=== PATIENT | male | born 1970 | race Caucasian/White ===

== ENCOUNTER 2020-12-11 07:58 | Observation (INO) | payer OTHER ==
[~2020-12-11] VITALS: Ht 195.6 cm; Wt 104.3 kg
[2020-12-11 08:42] LABS: BASOPHILS ABSOLUTE AUTO 0.02 K/mm3 (0.00-0.23); BASOPHILS PERCENT AUTO 0 % (0-2); EOSINOPHILS PERCENT AUTO 0 % (0-6); Hematocrit 43.9 % (37.0-53.0); Hemoglobin 15.3 g/dL (13.5-17.5); IMMATURE GRAN ABSOLUTE AUTO 0.07 K/mm3 (0.00-0.10); IMMATURE GRAN PERCENT AUTO 1 % (0-1); LYMPHOCYTES ABSOLUTE AUTO 0.84 K/mm3 (0.84-5.20); LYMPHOCYTES PERCENT AUTO 7 % (21-46); MONOCYTES ABSOLUTE AUTO 0.97 K/mm3 (0.16-1.47); MONOCYTES PERCENT AUTO 8 % (4-13); Mean Corpuscular HGB 32.1 pg (26.0-34.0); Mean Corpuscular HGB Conc 34.9 g/dL (31.5-36.5); Mean Corpuscular Volume 92 fL (80-100); Mean Platelet Volume 9.2 fL (9.1-12.4); NEUTROPHILS PERCENT AUTO 84 % (41-73); Platelet Count 146 K/mm3 (150-400); RDW Coefficient Variation 13.2 % (11.7-14.2); RDW Standard Deviation 44.7 fL (35.1-46.3); Red Blood Cell Count 4.76 M/mm3 (4.30-5.90)
[2020-12-11 09:24] LABS: Alanine Aminotransfer (ALT/SGP 42 U/L (12-78); Albumin, Blood 3.4 g/dL (3.4-5.0); Albumin/Globulin Ratio 0.9 (0.8-1.8); Alk Phos 76 U/L (50-136); Anion Gap 6 mmol/L (6-16); Aspartate Aminotrans (AST/SGOT 16 U/L (12-37); Bilirubin, Total 2.1 mg/dL (0.1-1.0); Blood Urea Nitrogen 15 mg/dL (8-24); Bun/Creatinine Ratio 13.5 (12.0-20.0); CO2, Blood 29 mmol/L (21-32); Calcium, Blood 8.4 mg/dL (8.5-10.1); Chloride, Blood 99 mmol/L (98-108); Creatinine, Blood 1.11 mg/dL (0.60-1.20); Globulin, Blood 3.9 g/dL (2.2-4.0); Glomerular Filtration Rate >60 (60-); Glucose, Blood 163 mg/dL (70-99); Potassium, Blood 3.8 mmol/L (3.5-5.5); Sodium, Blood 134 mmol/L (136-145); Total Protein, Blood 7.3 g/dL (6.4-8.2)
[2020-12-11 11:08] LABS: Source, Urine Clean Catch
[2020-12-11 11:12] LABS: Appearance, Urine Clear (Clear); Bilirubin, Urine Neg (Neg); Blood, Urine 1+ (Neg); Color, Urine Yellow (P-Yellow); Glucose Qualitative, Urine Neg (Neg); Ketones, Urine 1+ (Neg); Leukocyte Esterase, Urine 1+ (Neg); Nitrite, Urine Neg (Neg); Protein, Urine 2+ (Neg); Urobilinogen, Urine 4+ (Normal); pH, Urine 6.5 (5.0-8.0)
[2020-12-11 11:24] LABS: SARS-Cov-2 (COVID-19) PCR, MMC NEGATIVE (NEGATIVE)
[2020-12-11 11:43] LABS: Bacteria Rare /hpf; Red Blood Cells, Urine 0-2 /hpf (0-2); Squamous Epithelial Cells Few /hpf (Few)
--- NOTE | 2020-12-11 15:52 | NUR ---
THE PATIENT WAS BROUGHT TO THE D/S FOR HIS PROCEDURE. Ambulatory in Day Surgery Surgical site prepped with 2% Chlorhexidine cloth wipe. History, Chart, Medications and Allergies reviewed before start of procedure.Lungs clear T/O to Auscultation. Patient confirms NPO status and agrees with scheduled surgery. Pre-Op teaching done. Pt verbalizes understanding. Patient States Post-Procedure ride home has been arranged.
--- NOTE | 2020-12-11 17:40 | NUR ---
SHIFT SUMMARY PT NEW ADMIT TO UNIT FROM ER. ALERT AND ORIENTED. RIGHT LOWER ABD PAIN. DENIES NAUSEA/VOMITING. PAIN CONTROLLED WITH IV MORPHINE FROM ER. PT WENT TO OR AT 1500. NOT BACK AT THIS TIME. FAMILY PRESENT IN ROOM. NO SIGNIFICANT MEDICAL HX.
[2020-12-12 04:48] LABS: BASOPHILS ABSOLUTE AUTO 0.02 K/mm3 (0.00-0.23); BASOPHILS PERCENT AUTO 0 % (0-2); Hematocrit 37.1 % (37.0-53.0); Hemoglobin 12.9 g/dL (13.5-17.5); LYMPHOCYTES ABSOLUTE AUTO 1.01 K/mm3 (0.84-5.20); LYMPHOCYTES PERCENT AUTO 12 % (21-46); MONOCYTES PERCENT AUTO 9 % (4-13); Mean Corpuscular HGB 32.3 pg (26.0-34.0); Mean Corpuscular HGB Conc 34.8 g/dL (31.5-36.5); Mean Corpuscular Volume 93 fL (80-100); Mean Platelet Volume 9.4 fL (9.1-12.4); Platelet Count 116 K/mm3 (150-400); RDW Coefficient Variation 13.1 % (11.7-14.2); RDW Standard Deviation 44.4 fL (35.1-46.3); Red Blood Cell Count 3.99 M/mm3 (4.30-5.90); White Blood Cell Count 8.18 K/mm3 (4.00-11.30)
[2020-12-12 04:51] LABS: EOSINOPHILS ABSOLUTE AUTO 0.01 K/mm3 (0.00-0.68); EOSINOPHILS PERCENT AUTO 0 % (0-6); IMMATURE GRAN ABSOLUTE AUTO 0.03 K/mm3 (0.00-0.10); IMMATURE GRAN PERCENT AUTO 0 % (0-1); NEUTROPHILS ABSOLUTE AUTO 6.41 K/mm3 (1.96-9.15); NEUTROPHILS PERCENT AUTO 78 % (41-73)
--- NOTE | 2020-12-12 05:31 | NUR ---
SHIFT SUMMARY POD1 LAP RUPTURED APPY. PT AOX4. VSS. AFEBRILE. LAP SITE ARE CDI. TOLERATING PO INTAKE DENIES N/V. PATIENT REPORTS PAIN AFTER WALKING 5/10 PAIN LEVEL. PAIN MANAGED WITH 2 TAB PERCOCET. PT VOIDING WITHOUT DIFFICULTY. PT DENIES DIZZINESS, NUMBNESS AND TINGLING SENSATION. PT DENIES PASSING FLATUS. HE SLEPT GOOD T/O SHIFT. CALL LIGHT WITHIN REACH. WILL PROVIDE REPORT TO ONCOMING NURSE.
[2020-12-12] MEDS ORDERED: OXAYDO5 M1 PO (12:45)
[2020-12-12] MEDS ORDERED: AMOCLA875 PO (12:46)
--- NOTE | 2020-12-12 14:22 | NUR ---
DISCHARGE PT LEFT WITH , PT DECLINED TO USE WHEELCHAIR AND AMBULATED OUT. IV REMOVED PRIOR TO DISCHARGE. DISCHARGE INSTRUCTIONS GONE OVER WITH PATIENT AND FAMILY. PRESCRIPTIONS SENT WITH PRIOR TO DISCHARGE. PT REPORTS PASSING GAS AND TOLERATING PO, NO NAUSEA. PAIN TOLERABLE DURING SHIFT, PT REPORTS AT BASELINE.
== END 2020-12-12 13:30 | disposition home or self-care (01) ==
LOC: ER 07:58 → SURS 07:59
PROVIDERS: Emergency Medicine; ADMIT Surgery
PROC: 0DTJ4ZZ Resection of Appendix, Percutaneous Endoscopic Approach (ICD-10-PCS; principal; 2020-12-11 16:00)
DX: K35.32 Acute appendicitis with perforation, localized peritonitis, and gangrene, without abscess (principal); Z88.1 Allergy status to other antibiotic agents; Z20.822 Contact with and (suspected) exposure to COVID-19
CPT/HCPCS: 36415; 74177; 80053; 81001; 85025; 87086; 88304; 94760; 96361-59; 96365-59; 96375-59; 99285-25; A9270; J1885; J2250; J2270; J2405; J2543; J2704; J2710; J3010; J7030; J7120; Q9967; U0004